=== PATIENT | female | born 1980 | race Caucasian/White ===

== ENCOUNTER 2016-04-14 01:11 | Emergency (ER) | payer MEDICAID, OTHER ==
[~2016-04-14] VITALS: Ht 167.6 cm; Wt 70.0 kg
[2016-04-14 01:25] VITALS: Ht 167.6 cm; Wt 70.0 kg
[2016-04-14] MEDS ORDERED: morphine 4 MG/ML VIAL IV STA (01:45)
[2016-04-14] MEDS ORDERED: SOD CHLORIDE 0.9% 1,000 ML IV STA (01:45)
[2016-04-14] MEDS ORDERED: ONDANSETRON 4 MG INJ IV STA (01:45)
[2016-04-14] MEDS ORDERED: FAMOTIDINE 20 MG INJ IV STA (01:45)
[2016-04-14 01:46] LABS: URINE BLOOD (Dip) POC Trace-intact (NEGATIVE)
[2016-04-14 02:29] LABS: BASOPHIL # 0.2 10^3/ul (0.0-0.1); BASOPHILS % 1.6 % (0.0-2.0); CONDITION 1; EOSINOPHILS # 0.4 10^3/ul (0.0-0.5); EOSINOPHILS % 3.8 % (0.0-7.0); HEMATOCRIT 40.3 % (37.0-47.0); HEMOGLOBIN 13.6 g/dl (12.0-16.0); LYMPHOCYTES # 3.1 10^3/ul (0.8-2.9); LYMPHOCYTES % 30.9 % (15.0-51.0); MEAN CORPUSCULAR HGB CONC 33.8 g/dl (32.0-37.0); MEAN CORPUSCULAR VOLUME 88.8 fl (82.0-101.0); MEAN PLATELET VOLUME 9.4 fl (7.4-10.4); MONOCYTE # 0.7 10^3/ul (0.3-0.9); MONOCYTES % 6.8 % (0.0-11.0); NEUTROPHIL # 5.6 10^3/ul (1.6-7.5); NEUTROPHILS % 56.9 % (39.0-77.0); PLATELET COUNT 210 10^3/UL (140-440); RED BLOOD COUNT 4.54 10^6/ul (4.20-5.40); RED CELL DISTRIBUTION WIDTH 13.1 % (11.5-14.5); UNCORRECTED WBC 9.9 10^3/ul (4.8-10.8); WHITE BLOOD COUNT 9.9 10^3/ul (4.8-10.8)
[2016-04-14 02:34] LABS: POTASSIUM 3.9 mmol/L (3.5-5.1)
[2016-04-14 02:36] LABS: ALBUMIN/GLOBULIN RATIO 1.17; BILIRUBIN,INDIRECT 0.1 mg/dl (0-1.1); BILIRUBIN,TOTAL 0.1 mg/dl (0.2-1.3); CREATININE 0.71 mg/dl (0.44-1.00); TOTAL PROTEIN 7.4 g/dl (6.1-8.1)
[2016-04-14 02:37] LABS: CALCIUM 9.6 mg/dl (8.4-10.2)
[2016-04-14 02:40] LABS: ADD UMIC YES; URINE BILIRUBIN (Dip) NEGATIVE (NEGATIVE); URINE BLOOD (Dip) TRACE (NEGATIVE); URINE COLOR LT. YELLOW (YELLOW); URINE GLUCOSE (Dip) NEGATIVE (NEGATIVE); URINE KETONES (Dip) NEGATIVE (NEGATIVE); URINE LEUKOCYTE ESTERASE (Dip) NEGATIVE (NEGATIVE); URINE NITRITE (Dip) NEGATIVE (NEGATIVE); URINE TOTAL PROTEIN (Dip) NEGATIVE (NEGATIVE); URINE UROBILINOGEN (Dip) 0.2 E.U./dL (0.1-1.0)
[2016-04-14 02:46] LABS: BACTERIA,URINE MANY; SQUAMOUS EPITHELIAL CELL,UR MANY; URINE RBCS 0-2 /HPF (0)
--- NOTE | 2016-04-14 03:15 | RADRPT ---
PROCEDURE: ULTRASOUND LIMITED ABDOMEN CLINICAL INDICATION: 35-year-old female with abdominal pain. TECHNIQUE: Multiple sonographic of the right upper quadrant of the abdomen were obtained. The imag es were reviewed on a PACS workstation. COMPARISON: None. FINDINGS: The pancreas is not visualized secondary to overlying bowel gas. The liver displays normal echogenicity. The liver measures 15.3 cm in length. No evidence of intrah epatic biliary ductal dilatation is seen. The portal and hepatic veins are unremarkable. The gallbladder contains multiple shadowing stones extending into the gallbladder neck region. The gallbladder wall thickness is within normal limits measuring 1.7 mm. No pericholecystic fluid is see n. The common bile duct measures 4.1 mm and is not dilated. The right kidney displays normal echogenicity. The right kidney measures 11.1 cm in length. No calie ctasis or hydronephrosis is seen. No free fluid is seen. IMPRESSION: Cholelithiasis. .Kednall Sawant MD, Date Time Electronically viewed and signed by .Kendall Sawant MD, on 04/14/2016 03:15 .M/
--- NOTE | 2016-04-14 03:22 | ERD ---
ER Documentation Chief Complaint Date/Time DATE: 04/14/16 TIME: 03:20 Chief Complaint nonradiating epigastric pain x 3 hours, vomited HPI This is a 35-year-old female presents to the emergency room for evaluation of abdominal pain. The patient states that she is abdominal pain for the past 3 hours, and feels nauseous. She localizes the abdominal pain to the midportion of abdomen states is achy pain with no radiation. She denies any fevers or diarrhea associated with this and denies any aggravating or relieving factors for her pain. The patient does state that she has had a previous tubal ligation and appendectomy ROS All systems reviewed and are negative except as per history of present illness. Allergies Allergies: Coded Allergies: No Known Drug Allergies (Verified Allergy, Unknown, 04/14/16) PMhx/Soc Medical and Surgical Hx: pt denies Medical Hx History of Surgery: Yes (appendectomy, tubal ligation) Anesthesia Reaction: No Hx Alcohol Use: No Hx Substance Use: No Hx Tobacco Use: No Smoking Status: Never smoker Physical Exam Vitals Vital Signs Date Time Temp Pulse Resp B/P Pulse Ox O2 Delivery O2 Flow Rate FiO2 04/14/16 01:55 98.9 79 20 116/81 100 Room Air 04/14/16 01:25 98.1 69 20 131/74 100 Physical Exam INITIAL VITAL SIGNS: Reviewed by me GENERAL: The patient is well developed and appropriate for usual state of health in no apparent distress HEENT: Pupils equal, round, and reactive to light. EOMI. There is no scleral icterus. NECK: C-spine is soft and supple, there is no meningismus. There is no cervical lymphadenopathy. LUNGS: Clear to auscultation bilaterally. There are no rales, wheezes or rhonchi. HEART: Regular rate and rhythm, no murmurs, clicks, rubs or gallops. ABDOMEN: Positive Kearns sign. There are bowel sounds in all four quadrants. No rebound or guarding. EXTREMITIES: There is no peripheral cyanosis or edema. No focal swelling or erythema. NEUROLOGICAL: The patient moves all four extremities with 5/5 strength. Cranial nerves II - XII are intact. Normal gait. Alert and oriented SKIN: There is no apparent rash or petechiae. HEME/LYMPHATIC: There is no evidence of excessive bruising or lymphedema. PSYCHIATRIC: The patient does not appear anxious or depressed. Result Diagram: 04/14/16 0155 04/14/16 0155 Results 24 hrs Laboratory Tests Test 04/14/16 01:47 04/14/16 01:55 Bedside Urine Blood Trace-intact Bedside Urine Glucose (UA) Negative Bedside Urine Ketones (LAB) Negative Bedside Urine Leukocyte Esterase (L Negative Bedside Urine Nitrite (LAB) Negative Bedside Urine Protein (LAB) Negative Bedside Urine pH (LAB) 6.5 Alanine Aminotransferase (ALT/SGPT) 25IU/L Albumin 4.0g/dl Albumin/Globulin Ratio 1.17 Alkaline Phosphatase 88IU/L Anion Gap 17 Aspartate Amino Transf (AST/SGOT) 22IU/L Basophils # 0.210^3/ul Basophils % 1.6% Blood Urea Nitrogen 16mg/dl Calcium Level 9.6mg/dl Carbon Dioxide Level 28mmol/L Chloride Level 102mmol/L Creatinine 0.71mg/dl Direct Bilirubin 0.00mg/dl Eosinophils # 0.410^3/ul Eosinophils % 3.8% Globulin 3.40g/dl Glucose Level 93mg/dl Hematocrit 40.3% Hemoglobin 13.6g/dl Indirect Bilirubin 0.1mg/dl Lipase 126U/L Lymphocytes # 3.110^3/ul Lymphocytes % 30.9% Mean Corpuscular Hemoglobin 30.0pg Mean Corpuscular Hemoglobin Concent 33.8g/dl Mean Corpuscular Volume 88.8fl Mean Platelet Volume 9.4fl Monocytes # 0.710^3/ul Monocytes % 6.8% Neutrophils # 5.610^3/ul Neutrophils % 56.9% Nucleated Red Blood Cells # 0.010^3/ul Nucleated Red Blood Cells % 0.0/100WBC Platelet Count 04023^3/UL Potassium Level 3.9mmol/L Red Blood Count 4.5410^6/ul Red Cell Distribution Width 13.1% Sodium Level 143mmol/L Total Bilirubin 0.1mg/dl Total Protein 7.4g/dl Urine Bacteria MANY Urine Bilirubin NEGATIVE Urine Clarity CLEAR Urine Color LT. YELLOW Urine Glucose NEGATIVE% Urine Hemoglobin TRACE Urine Ketones NEGATIVE Urine Leukocyte Esterase NEGATIVE Urine Microscopic RBC 0-2/HPF Urine Microscopic WBC 0-2/HPF Urine Nitrite NEGATIVE Urine Specific [place] 1.020 Urine Squamous Epithelial Cells MANY Urine Total Protein NEGATIVE Urine Urobilinogen 0.2 E.U./dL Urine pH 6.5 White Blood Count 9.910^3/ul Current Medications Medications (Trade) Dose Ordered Sig/Jabier Route PRN Reason Start Time Stop Time Status Last Admin Dose Admin Sodium Chloride (NS) 1,000 ml @ 1,000 mls/hr Q1H STAT IV 04/14/16 01:45 04/14/16 02:44 DC 04/14/16 02:18 Morphine Sulfate (morphine) 4 mg ONCE STAT IV 04/14/16 01:45 04/14/16 01:47 DC 04/14/16 02:18 Ondansetron HCl (Zofran Inj) 4 mg ONCE STAT IV 04/14/16 01:45 04/14/16 01:48 DC 04/14/16 02:18 Famotidine (Pepcid Iv) 20 mg ONCE STAT IV 04/14/16 01:45 04/14/16 01:48 DC 04/14/16 02:18 Procedures/MDM Ultrasound gallbladder: Cholelithiasis This 35-year-old female presents to the ER for evaluation of abdominal pain. This patient did have a positive Kearns sign on my examination. Lab work was obtained including ultrasound of the gallbladder. Ultrasound of the gallbladder does show cholelithiasis with no evidence of cholecystitis. Her lab work is within normal limits with no elevations in her transaminases or bilirubin. The patient's pain is controlled with morphine, Zofran and Pepcid. I advised the patient that she does have gallstones and could need her gallbladder taken out electively. The patient verbalized understanding. She will be discharged home at this time with a prescription for [place] and a referral for general surgery. Differential diagnoses entertained was broad with potential high acuity. Patient has been evaluated for appendicitis, cholecystitis, and other high risk medical and surgical causes of abdominal pain. Ultimately the patient's evaluation is nondiagnostic. Based on the patient's lack of risk factors, as well as the patient's clinical, laboratory, and imaging data, the patient appears to be low risk for these high risk causes of abdominal pain. Departure Diagnosis: Primary Impression: Cholelithiasis Additional Impression: Biliary colic Condition: Stable SELVINTIAN DIAZGONZÁLEZ MCDONOUGH Apr 14, 2016 03:22
[2016-04-14] MEDS ORDERED: ONDA4TAB8 PO (03:23)
[2016-04-14] MEDS ORDERED: DOCU-144 PO (03:23)
[2016-04-14] MEDS ORDERED: HYDR-906 PO (03:23)
[2016-04-14] MEDS ORDERED: morphine 2 MG INJ IV ONE (03:30)
[2016-04-14 03:51] VITALS: BP 121/84; PULSE 64; RESP 20; TEMP 98.6
== END 2016-04-14 03:51 | disposition home or self-care (01) ==
LOC: E/R 01:11
DX: K80.70 Calculus of gallbladder and bile duct without cholecystitis without obstruction (principal); R11.2 Nausea with vomiting, unspecified; R40.2142 Coma scale, eyes open, spontaneous, at arrival to emergency department; R40.2252 Coma scale, best verbal response, oriented, at arrival to emergency department; R40.2362 Coma scale, best motor response, obeys commands, at arrival to emergency department
CPT/HCPCS: 36415; 76705; 80053; 81001; 81003; 83690; 85025; 96361; 96374; 96375; 96376; J2270; J2405; J7030; Z7502; Z7610